=== PATIENT | male | born 1960 | race Caucasian/White ===

== ENCOUNTER 2023-06-02 07:48 | Emergency (ER) | payer OTHER, SELFPAY ==
[2023-06-02 07:55] VITALS: BP 97/66; PULSE 94; RESP 18; TEMP 36.6; O2SAT 99; BMI 31.3
--- NOTE | 2023-06-02 08:13 | ED_ITS ---
HPI - Skin/Abscess/Foreign Bdy General Chief complaint: Skin/Abscess/Foreign Body Stated complaint: hemorrhoids Time Seen by Provider: 06/02/23 07:54 Source: patient Mode of arrival: Ambulatory Limitations: no limitations History of Present Illness HPI narrative: 63-YEAR-OLD male presents by private vehicle from home for rectal pain for 1 week. Patient states that he thinks his hemorrhoids have flared. He has been using Sitz baths and applying preparation H, but the pain is intense. States he initially had some constipation, and subsequent diarrhea, which she thinks may have exacerbated his hemorrhoids. Related Data Previous Rx's Medication Instructions Recorded lidocaine 5 % topical ointment 1 applic topical BID PRN pain #50 06/02/23 grams nitroglycerin 0.4 % (w/w) rectal 1 inch CA Q12H 3 weeks #30 grams 06/02/23 ointment Allergies Allergy/AdvReac Type Severity Reaction Status Date / Time No Known Drug Allergies Allergy Verified 06/02/23 08:00 Review of Systems Review of Systems Narrative: Negative except as noted above Patient History Social History Smoking Status: Never smoker Smoking Status: Never smoker Substance Use Type: does not use Exam Initial Vital Signs Initial Vital Signs: Vital Signs Temperature 97.9 F 06/02/23 07:55 Pulse Rate 94 H 06/02/23 07:55 Respiratory Rate 18 06/02/23 07:55 Blood Pressure 97/66 06/02/23 07:55 Pulse Oximetry 99 06/02/23 07:55 Oxygen Delivery Method Room Air 06/02/23 07:55 Const: Awake, alert, no acute distress, nontoxic appearing Cardiac: regular rate, regular rhythm RESP: unlabored, clear bilaterally, no wheezing GI: Atraumatic, soft, nontender Rectal: [employer] present, anal fissure at 6:00 a.m. position, no large thrombosed hemorrhoids Skin: Warm, Dry, intact, no rashes Neuro: AO x3, CN II-XII grossly intact, moves all extremities Psych: affect normal, mood normal, not suicidal, not homicidal Course Course Course Narrative: Anal fissure for 1 week. No gross blood, no obvious hemorrhoids. Rectal tone intact. Patient counseled on his diagnosis, advised that he would need to continue to use Sitz baths, keep his stools soft but solid. Prescription for nitroglycerin and lidocaine ointment sent to pharmacy of choice. Patient on the anticipated course of recovery for anal fissure and recommended follow up for endoscopy if he does not improve with conservative treatment. Vital Signs Vital signs: Vital Signs - 8 hr 06/02/23 07:55 Temperature 97.9 F Pulse Rate 94 H Respiratory Rate 18 Blood Pressure 97/66 Pulse Oximetry 99 Oxygen Delivery Method Room Air Discharge Plan Departure Patient Disposition: Home Clinical Impression: Acute anal fissure Instructions: DI for Anal Fissure Activity Restrictions/Additional Instructions: Continue to use the Sitz baths. Take stool softeners and increase her fiber intake to keep stools soft to prevent worsening symptoms. Treatment duration for this condition is 3-4 weeks, if you continued to have symptoms then I recommend following up with either Gastroenterology or General surgery for endoscopy. Prescriptions: New lidocaine 5 % ointment 1 applic topical BID PRN (Reason: pain) Qty: 50 0RF nitroglycerin 0.4 % (w/w) ointment 1 inch CA Q12H 21 Days Qty: 30 0RF Stand Alone Forms: Patient Portal/API
== END 2023-06-02 08:24 | disposition home or self-care (01) ==
PROVIDERS: Emergency Provider Emergency Medicine
DX: K60.2 Anal fissure, unspecified (principal)
CPT/HCPCS: 99281; 99282